=== PATIENT | female | born 1955 | race Hispanic/Latino ===

== ENCOUNTER 2022-09-28 00:56 | Observation (INO) | payer MEDICARE, MEDICAID ==
[2022-09-28] MEDS ORDERED: traMADol HCl 50 MG TAB ONE (04:43)
[2022-09-28 10:56] VITALS: BMI 78.1
[2022-09-28] MEDS ORDERED: MENTHOL TOP PRN (12:40)
[2022-09-28] MEDS ORDERED: Nystatin Powder 15 GM BOT TOP PRN (12:40)
[2022-09-28] MEDS ORDERED: Furosemide 40 MG/4 ML VIAL SLOW IVP SCH (12:45)
[2022-09-28] MEDS ORDERED: METHYLPREDNISOLONE 4 MG PO SCH (12:45)
[2022-09-28] MEDS ORDERED: Electrolyte Replacement Protocol 1 EACH FS SCH (12:45)
[2022-09-28] MEDS ORDERED: Dextrose 5% in Water 1,000 ML IV PRN (12:49)
[2022-09-28] MEDS ORDERED: Dextrose 50% Abboject 50 ML SYRINGE SLOW IVP PRN (12:49)
[2022-09-28] MEDS ORDERED: HumaLOG 300 UNITS/3 ML VIAL SC PRN ×2 (12:49)
[2022-09-28] MEDS ORDERED: Ondansetron PF 4 MG/2 ML Vial IVP PRN (12:50)
[2022-09-28] MEDS ORDERED: Ondansetron ODT 4 MG TAB PO PRN (12:50)
[2022-09-28] MEDS ORDERED: Mag-Al Plus 1200 MG/1200 MG/120 MG/30 ML UDCUP PO PRN (12:53)
[2022-09-28] MEDS ORDERED: Non-Formulary Medication 1 EACH (Ipratropium 200 PUFF Inh) INH SCH (13:00)
[2022-09-28] MEDS ORDERED: methylPREDNISolone 4 mg Tablet PO SCH ×3 (13:45→21:00)
[2022-09-28] MEDS: traMADol HCl 50 MG TAB PO PRN (13:53)
[2022-09-28] MEDS: Mometasone/Formoterol 60 PUFF AER INH SCH (19:10)
[2022-09-28] MEDS ORDERED: ARGININE PO SCH (21:00)
[2022-09-28] MEDS ORDERED: AMINO ACIDS PO SCH (21:00)
[2022-09-28] MEDS ORDERED: ASCORBATE SOD PO SCH (21:00)
[2022-09-28] MEDS ORDERED: BUMETANIDE 2 MG PO SCH (21:00)
[2022-09-28] MEDS ORDERED: [UNRECOGNIZED DRUG - OTHER] PO SCH (21:00)
[2022-09-28] MEDS ORDERED: [UNRECOGNIZED DRUG - OTHER] PO SCH (21:00)
[2022-09-28] MEDS ORDERED: VITE AC PO SCH (21:00)
[2022-09-28] MEDS ORDERED: PROTEIN HYDROLYS PO SCH (21:00)
[2022-09-28] MEDS ORDERED: Simvastatin 10 MG TAB PO SCH (21:00)
[2022-09-28] MEDS: Carvedilol 3.125 MG TAB PO SCH (21:13)
[2022-09-28] MEDS: guaiFENesin ER 600 MG TAB PO SCH (21:13)
[2022-09-28] MEDS: Bumetanide 1 MG TAB PO SCH (21:14)
[2022-09-29] MEDS: Carvedilol 3.125 MG TAB PO SCH (05:22)
[2022-09-29] MEDS: ALPRAZolam 0.25 MG TAB PO PRN ×2 (05:25→12:07)
[2022-09-29 05:56] LABS: BUN (Urea Nitrogen) 25 mg/dL (9.8-20.1); Calc. Creatinine Clearance 167 mL/min (70-130); Calcium 9.5 mg/dL (7.8-10.44); Estimated GFR 68; Glucose 111 mg/dL (80-115)
[2022-09-29] MEDS ORDERED: Levothyroxine Sodium 75 MCG TAB PO SCH (06:00)
[2022-09-29 06:05] LABS: Anion Gap 16 mmol/L (10-20); Carbon Dioxide 42 mmol/L (23-31); Chloride 89 mmol/L (98-107); Potassium 4.1 mmol/L (3.5-5.1); Sodium 143 mmol/L (136-145)
[2022-09-29 06:09] LABS: #Monocytes 0.2 10x3/uL (0.0-1.1); #Neutrophils 6.4 10x3/uL (1.5-8.4); %Basophils 0.3 % (0.0-2.0); %Lymphocytes 11.4 % (18.0-47.0); %Monocytes 2.5 % (0.0-10.0); %Neutrophils 85.1 % (40.0-75.0); Mean Corpuscular HGB CONC 28.5 g/dL (32.0-36.0); Mean Corpuscular Hemoglobin 25.1 pg (27.0-33.0); Mean Platelet Volume 9.6 fl (7.4-10.4); Platelet Count 202 10x3/uL (150-450); RBC Distribution Width 16.7 % (11.5-14.5); Red Blood Cell (RBC) Count 3.59 10x6/uL (3.90-5.03); White Blood Cell (WBC) Count 7.6 10x3/uL (3.5-10.5)
[2022-09-29 07:03] LABS: Hypochromia SLIGHT = 6-15 cells (100X) (0-5/hpf); Macrocytosis SLIGHT = 6-15 cells (100X) (0-5/hpf)
[2022-09-29 07:05] LABS: Platelet Morphology Comment Appears Adequate
[2022-09-29 07:07] VITALS: TEMP 98
[2022-09-29] MEDS: Mometasone/Formoterol 60 PUFF AER INH SCH (07:30)
[2022-09-29] MEDS ORDERED: Ferrous Sulfate 325 MG TAB PO SCH (08:00)
[2022-09-29] MEDS ORDERED: methylPREDNISolone 4 mg Tablet PO SCH ×2 (08:00→21:00)
[2022-09-29] MEDS ORDERED: Polyethylene Glycol 3350 17 GM Packet PO SCH (09:00)
[2022-09-29] MEDS ORDERED: Aspirin Chewable 81 MG TAB PO SCH (09:00)
[2022-09-29] MEDS ORDERED: Potassium Chloride 20 MEQ TAB PO SCH (09:00)
[2022-09-29 10:55] VITALS: BP 157/71
[2022-09-29] MEDS: Bumetanide 1 MG TAB PO SCH (12:07)
[2022-09-29] MEDS: guaiFENesin ER 600 MG TAB PO SCH (12:07)
[2022-09-29] MEDS: traMADol HCl 50 MG TAB PO PRN (12:08)
[2022-09-30] MEDS ORDERED: methylPREDNISolone 4 mg Tablet PO SCH (08:00)
[2022-10-01] MEDS ORDERED: methylPREDNISolone 4 mg Tablet PO SCH (08:00)
[2022-10-02] MEDS ORDERED: methylPREDNISolone 4 mg Tablet PO SCH (08:00)
[2022-10-03] MEDS ORDERED: methylPREDNISolone 4 mg Tablet PO SCH (08:00)
== END 2022-09-29 12:30 ==
LOC: CSHERS 00:56 → CSHTELE 09:37
PROVIDERS: ADMIT Internal Medicine; ATTEND Internal Medicine
DX: J96.11 Chronic respiratory failure with hypoxia (principal); I11.0 Hypertensive heart disease with heart failure; I50.32 Chronic diastolic (congestive) heart failure; E78.5 Hyperlipidemia, unspecified; E66.2 Morbid (severe) obesity with alveolar hypoventilation; J44.9 Chronic obstructive pulmonary disease, unspecified; F32.A Depression, unspecified; E11.9 Type 2 diabetes mellitus without complications; K21.9 Gastro-esophageal reflux disease without esophagitis; Z68.45 Body mass index [BMI] 70 or greater, adult; F41.9 Anxiety disorder, unspecified; Z88.6 Allergy status to analgesic agent; Z88.5 Allergy status to narcotic agent; Z91.040 Latex allergy status; Z88.0 Allergy status to penicillin; Z91.041 Radiographic dye allergy status; Z88.8 Allergy status to other drugs, medicaments and biological substances; Z79.899 Other long term (current) drug therapy; Z79.82 Long term (current) use of aspirin; Z93.0 Tracheostomy status
CPT/HCPCS: 80048; 82962; 85025; 93922; 94640 ×4; 94760 ×3; 94799; 96372; 97110; 97139 ×2; 97530 ×2; 99285; G0378 ×3; 36415; 36416; 96374; J1650; J1940; J7509; J7611